=== PATIENT | male | born 1930 | race Two or more races ===

== ENCOUNTER 2017-12-13 11:13 | Outpatient (CLI) | payer MEDICARE, BC ==
[2017-12-13] MEDS ORDERED: TETANUS TOXOID ADSORBED IM ONE (11:14)
[2017-12-13] MEDS ORDERED: TDAP [DIPH/PERTUSSIS/TET] 0.5 ML VIAL IM ONE (13:00)
== END 2017-12-13 23:59 | disposition home or self-care (01) ==
LOC: WOU 11:13
PROVIDERS: ATTEND Nurse Practitioner Acute Care
DX: S51.812D Laceration without foreign body of left forearm, subsequent encounter (principal); S50.12XD Contusion of left forearm, subsequent encounter; W18.30XD Fall on same level, unspecified, subsequent encounter; Z23 Encounter for immunization; Z88.2 Allergy status to sulfonamides; Z87.891 Personal history of nicotine dependence; Z96.641 Presence of right artificial hip joint; Z96.652 Presence of left artificial knee joint; Z95.810 Presence of automatic (implantable) cardiac defibrillator
CPT/HCPCS: 90714; 90715; A6209; A6402; G0463

== ENCOUNTER 2017-12-16 13:54 | Outpatient (CLI) | payer MEDICARE, BC | END 2017-12-16 23:59 | disposition home health service (06) | LOC: WOU 13:54 | PROVIDERS: ATTEND Surgery | DX: S51.812A Laceration without foreign body of left forearm, initial encounter (principal); S41.132A Puncture wound without foreign body of left upper arm, initial encounter; W18.30XA Fall on same level, unspecified, initial encounter; Y92.89 Other specified places as the place of occurrence of the external cause; Z87.891 Personal history of nicotine dependence; Z95.810 Presence of automatic (implantable) cardiac defibrillator; Z96.641 Presence of right artificial hip joint; Z96.652 Presence of left artificial knee joint; M19.90 Unspecified osteoarthritis, unspecified site | CPT/HCPCS: 11042; A6209; A6402 ==

== ENCOUNTER 2017-12-23 13:20 | Outpatient (CLI) | payer MEDICARE, BC | END 2017-12-23 23:59 | disposition home health service (06) | LOC: WOU 13:20 | PROVIDERS: ATTEND Surgery | DX: S51.812A Laceration without foreign body of left forearm, initial encounter (principal); W18.30XA Fall on same level, unspecified, initial encounter; Y92.89 Other specified places as the place of occurrence of the external cause; Z87.891 Personal history of nicotine dependence; Z96.641 Presence of right artificial hip joint; Z96.652 Presence of left artificial knee joint; Z95.810 Presence of automatic (implantable) cardiac defibrillator; Z79.899 Other long term (current) drug therapy | CPT/HCPCS: 11042; A6209; A6402 ==

== ENCOUNTER 2017-12-30 13:30 | Outpatient (CLI) | payer MEDICARE, BC | END 2017-12-30 23:59 | disposition home health service (06) | LOC: WOU 13:30 | PROVIDERS: ATTEND Surgery | DX: S51.812A Laceration without foreign body of left forearm, initial encounter (principal); S41.132A Puncture wound without foreign body of left upper arm, initial encounter; W19.XXXA Unspecified fall, initial encounter; Y92.89 Other specified places as the place of occurrence of the external cause; F32.9 Major depressive disorder, single episode, unspecified; M19.90 Unspecified osteoarthritis, unspecified site; Z79.899 Other long term (current) drug therapy | CPT/HCPCS: 11042; 11043; 11045; 11046; A6402 ×2 ==

== ENCOUNTER 2018-01-13 13:18 | Outpatient (CLI) | payer MEDICARE, BC | END 2018-01-13 23:59 | disposition home health service (06) | LOC: WOU 13:18 | PROVIDERS: ATTEND Surgery | DX: S51.812A Laceration without foreign body of left forearm, initial encounter (principal); W19.XXXA Unspecified fall, initial encounter; Y92.89 Other specified places as the place of occurrence of the external cause; M19.90 Unspecified osteoarthritis, unspecified site; Z87.891 Personal history of nicotine dependence; Z96.641 Presence of right artificial hip joint; Z96.652 Presence of left artificial knee joint; Z95.0 Presence of cardiac pacemaker; R23.3 Spontaneous ecchymoses; Z79.899 Other long term (current) drug therapy | CPT/HCPCS: 11042; 11045; A6402 ==

== ENCOUNTER 2018-01-20 13:39 | Outpatient (CLI) | payer MEDICARE, BC | END 2018-01-20 23:59 | disposition home health service (06) | LOC: WOU 13:39 | PROVIDERS: ATTEND Surgery | DX: S51.812A Laceration without foreign body of left forearm, initial encounter (principal); W19.XXXA Unspecified fall, initial encounter; Y92.89 Other specified places as the place of occurrence of the external cause; Z87.891 Personal history of nicotine dependence; M19.90 Unspecified osteoarthritis, unspecified site; F32.9 Major depressive disorder, single episode, unspecified; Z96.641 Presence of right artificial hip joint; Z96.652 Presence of left artificial knee joint; Z95.810 Presence of automatic (implantable) cardiac defibrillator; D69.1 Qualitative platelet defects | CPT/HCPCS: 11042; A6209; A6402 ==

== ENCOUNTER 2018-01-27 13:35 | Outpatient (CLI) | payer MEDICARE, BC | END 2018-01-27 23:59 | disposition home health service (06) | LOC: WOU 13:35 | PROVIDERS: ATTEND Surgery | DX: S51.812A Laceration without foreign body of left forearm, initial encounter (principal); W19.XXXA Unspecified fall, initial encounter; Y92.89 Other specified places as the place of occurrence of the external cause; Z96.652 Presence of left artificial knee joint; Z96.641 Presence of right artificial hip joint; Z87.891 Personal history of nicotine dependence; I49.9 Cardiac arrhythmia, unspecified; Z95.810 Presence of automatic (implantable) cardiac defibrillator; I10 Essential (primary) hypertension; F32.9 Major depressive disorder, single episode, unspecified | CPT/HCPCS: 11042; A6209; A6402; Z7610 ==

== ENCOUNTER 2018-02-17 13:47 | Outpatient (CLI) | payer MEDICARE, BC | END 2018-02-17 23:59 | disposition home or self-care (01) | LOC: WOU 13:47 | PROVIDERS: ATTEND Surgery | DX: S51.812D Laceration without foreign body of left forearm, subsequent encounter (principal); W18.30XD Fall on same level, unspecified, subsequent encounter; R23.3 Spontaneous ecchymoses; M19.90 Unspecified osteoarthritis, unspecified site; F32.9 Major depressive disorder, single episode, unspecified; Z96.641 Presence of right artificial hip joint; Z96.652 Presence of left artificial knee joint; Z95.810 Presence of automatic (implantable) cardiac defibrillator | CPT/HCPCS: G0463; Z7610 ==

== ENCOUNTER 2019-05-04 13:45 | Outpatient (CLI) | payer MEDICARE, BC | END 2019-05-04 23:59 | disposition home or self-care (01) | LOC: WOU 13:45 | PROVIDERS: ATTEND Surgery | DX: S81.811D Laceration without foreign body, right lower leg, subsequent encounter (principal); W22.03XD Walked into furniture, subsequent encounter; R23.3 Spontaneous ecchymoses; M19.90 Unspecified osteoarthritis, unspecified site; F32.9 Major depressive disorder, single episode, unspecified; Z95.810 Presence of automatic (implantable) cardiac defibrillator; Z96.641 Presence of right artificial hip joint; Z96.652 Presence of left artificial knee joint | CPT/HCPCS: A6209; G0463 ==

== ENCOUNTER 2019-05-12 14:45 | Outpatient (CLI) | payer MEDICARE, BC | END 2019-05-12 23:59 | disposition home or self-care (01) | LOC: WOU 14:45 | PROVIDERS: ATTEND Surgery | DX: S81.811D Laceration without foreign body, right lower leg, subsequent encounter (principal); W22.03XD Walked into furniture, subsequent encounter; R23.3 Spontaneous ecchymoses; M19.90 Unspecified osteoarthritis, unspecified site; F32.9 Major depressive disorder, single episode, unspecified; Z96.641 Presence of right artificial hip joint; Z95.810 Presence of automatic (implantable) cardiac defibrillator | CPT/HCPCS: G0463 ==

== ENCOUNTER 2019-05-18 14:20 | Outpatient (CLI) | payer MEDICARE, BC | END 2019-05-18 23:59 | disposition home health service (06) | LOC: WOU 14:20 | PROVIDERS: ATTEND Surgery | DX: T81.31XA Disruption of external operation (surgical) wound, not elsewhere classified, initial encounter (principal); R23.3 Spontaneous ecchymoses; M19.90 Unspecified osteoarthritis, unspecified site; F32.9 Major depressive disorder, single episode, unspecified; Z96.641 Presence of right artificial hip joint; Z96.652 Presence of left artificial knee joint; Z95.810 Presence of automatic (implantable) cardiac defibrillator | CPT/HCPCS: 11042 ==

== ENCOUNTER 2019-05-25 13:50 | Outpatient (CLI) | payer MEDICARE, BC | END 2019-05-25 23:59 | disposition home health service (06) | LOC: WOU 13:50 | PROVIDERS: ATTEND Surgery | DX: T81.31XA Disruption of external operation (surgical) wound, not elsewhere classified, initial encounter (principal); R23.3 Spontaneous ecchymoses; M19.90 Unspecified osteoarthritis, unspecified site; F32.9 Major depressive disorder, single episode, unspecified; Z96.652 Presence of left artificial knee joint; Z96.641 Presence of right artificial hip joint; Z95.810 Presence of automatic (implantable) cardiac defibrillator | CPT/HCPCS: 11042; A6407 ==

== ENCOUNTER 2019-06-01 13:50 | Outpatient (CLI) | payer MEDICARE, BC | END 2019-06-01 23:59 | disposition home health service (06) | LOC: WOU 13:50 | PROVIDERS: ATTEND Surgery | DX: T81.31XA Disruption of external operation (surgical) wound, not elsewhere classified, initial encounter (principal); R23.3 Spontaneous ecchymoses; M19.90 Unspecified osteoarthritis, unspecified site; F32.9 Major depressive disorder, single episode, unspecified; Z95.810 Presence of automatic (implantable) cardiac defibrillator; Z96.641 Presence of right artificial hip joint; Z96.652 Presence of left artificial knee joint | CPT/HCPCS: 11042 ==

== ENCOUNTER 2019-06-15 14:00 | Outpatient (CLI) | payer MEDICARE, BC | END 2019-06-15 23:59 | disposition home or self-care (01) | LOC: WOU 14:00 | PROVIDERS: ATTEND Surgery | DX: T81.31XA Disruption of external operation (surgical) wound, not elsewhere classified, initial encounter (principal); R23.3 Spontaneous ecchymoses; M19.90 Unspecified osteoarthritis, unspecified site; F32.9 Major depressive disorder, single episode, unspecified; Z96.641 Presence of right artificial hip joint; Z96.652 Presence of left artificial knee joint; Z95.810 Presence of automatic (implantable) cardiac defibrillator | CPT/HCPCS: 11042 ==

== ENCOUNTER 2019-06-29 14:00 | Outpatient (CLI) | payer MEDICARE, BC | END 2019-06-29 23:35 | disposition home or self-care (01) | LOC: WOU 14:00 | PROVIDERS: ATTEND Surgery | DX: T81.31XA Disruption of external operation (surgical) wound, not elsewhere classified, initial encounter (principal); R23.3 Spontaneous ecchymoses; M19.90 Unspecified osteoarthritis, unspecified site; F32.9 Major depressive disorder, single episode, unspecified; R60.0 Localized edema; Z95.810 Presence of automatic (implantable) cardiac defibrillator; Z96.641 Presence of right artificial hip joint; Z96.652 Presence of left artificial knee joint | CPT/HCPCS: 11042 ==

== ENCOUNTER 2019-07-06 12:56 | Outpatient (CLI) | payer MEDICARE, BC | END 2019-07-06 23:59 | disposition home or self-care (01) | LOC: WOU 12:56 | PROVIDERS: ATTEND Surgery | DX: T81.31XA Disruption of external operation (surgical) wound, not elsewhere classified, initial encounter (principal); R60.0 Localized edema; R23.3 Spontaneous ecchymoses; M19.90 Unspecified osteoarthritis, unspecified site; F32.9 Major depressive disorder, single episode, unspecified; I10 Essential (primary) hypertension; Z95.810 Presence of automatic (implantable) cardiac defibrillator; Z96.641 Presence of right artificial hip joint; Z96.652 Presence of left artificial knee joint | CPT/HCPCS: 11042 ==

== ENCOUNTER → 2019-07-17 | Outpatient (CLI) | payer MEDICARE, BC | END | disposition home or self-care (01) | LOC: CARD 13:56 | PROVIDERS: ATTEND Surgery | DX: I73.9 Peripheral vascular disease, unspecified (principal); R60.0 Localized edema; M79.605 Pain in left leg; M79.604 Pain in right leg ==

== ENCOUNTER 2019-07-20 14:00 | Outpatient (CLI) | payer MEDICARE, BC | END 2019-07-20 23:59 | disposition home health service (06) | LOC: WOU 14:00 | PROVIDERS: ATTEND Surgery | DX: T81.31XD Disruption of external operation (surgical) wound, not elsewhere classified, subsequent encounter (principal); R23.3 Spontaneous ecchymoses; R60.0 Localized edema; M19.90 Unspecified osteoarthritis, unspecified site; F32.9 Major depressive disorder, single episode, unspecified; Z96.641 Presence of right artificial hip joint; Z96.652 Presence of left artificial knee joint; Z95.810 Presence of automatic (implantable) cardiac defibrillator | CPT/HCPCS: G0463 ==

== ENCOUNTER 2019-08-03 14:25 | Outpatient (CLI) | payer MEDICARE, BC | END 2019-08-03 23:59 | disposition home or self-care (01) | LOC: WOU 14:25 | PROVIDERS: ATTEND Surgery | DX: S80.821D Blister (nonthermal), right lower leg, subsequent encounter (principal); X58.XXXD Exposure to other specified factors, subsequent encounter; R60.0 Localized edema; R23.3 Spontaneous ecchymoses; M19.90 Unspecified osteoarthritis, unspecified site; F32.9 Major depressive disorder, single episode, unspecified; Z96.641 Presence of right artificial hip joint; Z96.652 Presence of left artificial knee joint; Z95.810 Presence of automatic (implantable) cardiac defibrillator | CPT/HCPCS: G0463 ==

== ENCOUNTER 2019-08-17 14:30 | Outpatient (CLI) | payer MEDICARE, BC | END 2019-08-17 23:59 | disposition home or self-care (01) | LOC: WOU 14:30 | PROVIDERS: ATTEND Surgery | DX: S80.821A Blister (nonthermal), right lower leg, initial encounter (principal); X58.XXXA Exposure to other specified factors, initial encounter; Y92.89 Other specified places as the place of occurrence of the external cause; R60.0 Localized edema; M19.90 Unspecified osteoarthritis, unspecified site; F32.9 Major depressive disorder, single episode, unspecified; Z96.641 Presence of right artificial hip joint; Z96.652 Presence of left artificial knee joint; Z95.810 Presence of automatic (implantable) cardiac defibrillator | CPT/HCPCS: 11042; G0463 ==

== ENCOUNTER 2019-08-27 09:31 | Outpatient (CLI) | payer MEDICARE, BC | END 2019-08-27 23:59 | disposition home or self-care (01) | LOC: CT 09:31 | PROVIDERS: ATTEND Surgery | DX: S80.821A Blister (nonthermal), right lower leg, initial encounter (principal); M25.461 Effusion, right knee; X58.XXXA Exposure to other specified factors, initial encounter; Y93.89 Activity, other specified; Y92.89 Other specified places as the place of occurrence of the external cause; Y99.8 Other external cause status | CPT/HCPCS: 73700-TC ==

== ENCOUNTER 2019-11-02 14:30 | Outpatient (CLI) | payer MEDICARE, BC | END 2019-11-02 23:59 | disposition home health service (06) | LOC: WOU 14:30 | PROVIDERS: ATTEND Surgery | DX: S51.811A Laceration without foreign body of right forearm, initial encounter (principal); W18.30XA Fall on same level, unspecified, initial encounter; Y92.89 Other specified places as the place of occurrence of the external cause; R23.3 Spontaneous ecchymoses; R60.0 Localized edema; R41.3 Other amnesia; M19.91 Primary osteoarthritis, unspecified site; F32.9 Major depressive disorder, single episode, unspecified | CPT/HCPCS: A6209; G0463 ==

== ENCOUNTER 2021-02-01 20:59 | Emergency (ER) | payer MEDICARE, BC ==
[~2021-02-01] VITALS: Ht 175.3 cm; Wt 67.1 kg
[2021-02-01 21:05] VITALS: BP 110/54
[2021-02-01] MEDS ORDERED: HYDROCODONE/APAP 5/325MG TABLET PO ONE (22:30)
[2021-02-01] MEDS ORDERED: TDAP [DIPH/PERTUSSIS/TET] 0.5 ML VIAL IM ONE ×2 (22:30→22:32)
[2021-02-01] MEDS ORDERED: HYDROCODONE/APAP 5/325MG TABLET ONE (22:32)
[2021-02-01] MEDS ORDERED: CEPH500C2 PO (23:03)
--- NOTE | 2021-02-01 23:28 | NUR ---
Patient discharged to home in stable condition. Written and verbal after care instructions given. Patient verbalizes understanding of instruction. Pt ambulatory with a steady gait
== END 2021-02-01 23:28 | disposition home or self-care (01) ==
LOC: ER 21:08
DX: S51.811A Laceration without foreign body of right forearm, initial encounter (principal); I10 Essential (primary) hypertension; Z95.0 Presence of cardiac pacemaker; Z98.890 Other specified postprocedural states; Z79.899 Other long term (current) drug therapy; W18.39XA Other fall on same level, initial encounter; Y93.89 Activity, other specified; Y92.89 Other specified places as the place of occurrence of the external cause; Y99.8 Other external cause status
CPT/HCPCS: 90471; 90715; 99283; A6403

== ENCOUNTER 2021-02-02 12:50 | Outpatient (CLI) | payer MEDICARE, BC ==
[~2021-02-02 12:50] MED LIST: CEPH500C2 PO
== END 2021-02-02 23:59 | disposition home health service (06) ==
LOC: WOU 12:50
PROVIDERS: ATTEND Surgery
DX: S41.111A Laceration without foreign body of right upper arm, initial encounter (principal); W50.4XXA Accidental scratch by another person, initial encounter; Y92.89 Other specified places as the place of occurrence of the external cause; R41.3 Other amnesia; R23.3 Spontaneous ecchymoses; F32.9 Major depressive disorder, single episode, unspecified; M19.90 Unspecified osteoarthritis, unspecified site
CPT/HCPCS: 11042; 11045

== ENCOUNTER 2021-02-07 14:30 | Outpatient (CLI) | payer MEDICARE, BC ==
[2021-02-07] MEDS ORDERED: LIDOCAINE SOLN 4% 50 ML BOTTLE ONE (15:14)
== END 2021-02-07 23:59 | disposition home health service (06) ==
LOC: WOU 14:30
PROVIDERS: ATTEND Surgery
DX: S41.111A Laceration without foreign body of right upper arm, initial encounter (principal); W50.4XXA Accidental scratch by another person, initial encounter; Y92.89 Other specified places as the place of occurrence of the external cause; S01.81XA Laceration without foreign body of other part of head, initial encounter; W06.XXXA Fall from bed, initial encounter; Z91.81 History of falling
CPT/HCPCS: 11042; 11045

== ENCOUNTER 2021-03-13 14:05 | Outpatient (CLI) | payer MEDICARE, BC | END 2021-03-13 23:59 | disposition home health service (06) | LOC: WOU 14:05 | PROVIDERS: ATTEND Nurse Practitioner Family | DX: S41.111D Laceration without foreign body of right upper arm, subsequent encounter (principal); S01.01XD Laceration without foreign body of scalp, subsequent encounter; X58.XXXD Exposure to other specified factors, subsequent encounter; S81.811A Laceration without foreign body, right lower leg, initial encounter; X58.XXXA Exposure to other specified factors, initial encounter; Y92.89 Other specified places as the place of occurrence of the external cause; R29.6 Repeated falls; M19.90 Unspecified osteoarthritis, unspecified site; F32.9 Major depressive disorder, single episode, unspecified; Z88.1 Allergy status to other antibiotic agents | CPT/HCPCS: A6209; G0463 ==

== ENCOUNTER 2021-03-27 14:00 | Outpatient (CLI) | payer MEDICARE, BC | END 2021-03-27 23:59 | disposition home or self-care (01) | LOC: WOU 14:00 | PROVIDERS: ATTEND Surgery | DX: S41.111D Laceration without foreign body of right upper arm, subsequent encounter (principal); S01.81XD Laceration without foreign body of other part of head, subsequent encounter; S81.811D Laceration without foreign body, right lower leg, subsequent encounter; W18.30XD Fall on same level, unspecified, subsequent encounter; R23.3 Spontaneous ecchymoses; M19.90 Unspecified osteoarthritis, unspecified site; F32.9 Major depressive disorder, single episode, unspecified | CPT/HCPCS: G0463 ==